=== PATIENT | female | born 1990 | race Caucasian/White ===

== ENCOUNTER 2022-01-14 11:10 | Emergency (ER) | payer OTHER, SELFPAY ==
[2022-01-14 11:30] VITALS: BP 118/92; PULSE 89; RESP 16; TEMP 36.4; O2SAT 99; BMI 45.6
[2022-01-14 11:59] LABS: Strep Scrn Group A (Rapid) Negative (Negative)
--- NOTE | 2022-01-14 12:00 | HMH.EDUTC ---
[facility] [place] Clinical Impression: URI (upper respiratory infection) Qualifiers: URI type: unspecified URI Qualified Code(s): J06.9 - Acute upper respiratory infection, unspecified Disposition: Home, Self-Care Condition on Discharge: Good Instructions: Sore Throat, Methylprednisolone, Azithromycin Additional Instructions: *Monitor Temp, Over the counter Motrin or Tylenol as directed/as needed Tylenol every 4 hours and Motrin every 6 hours (as long as your family doctor has told you that you can take it) for fever or pain. and straight to ER if unable to lower temp less than 101.0 after medication given *Warm salt water gargles may help to soothe the throat *Throat Lozenges *Warm fluids like tea with honey may help to soothe the throat *Sleep elevated *Humidifier/Vaporizer Your throat swab was sent for culture. Those results are typically sent to your primary care. Be sure to follow up in 2-3 days with your family doctor/primary care physician if no improvement so they can review those result and treat if necessary. If you don?t have a primary care doctor, I recommend you get one but in the mean time, you will have to return to a walk in clinic Follow up IMMEDIATELY for new or worsening symptoms or no Noticeable improvement over the next 48-72 hours. 911 for difficulty breathing or swallowing Prescriptions: methylPREDNISolone [Medrol 4mg tab] 4 mg PO DIRECTED #21 tab Transmission Status: Pending to [facility] #[id number] Azithromycin [Z-Kin 250mg Tab] 250 mg PO DIRECTED #6 tab Transmission Status: Pending to [facility] #[id number] Referrals: Yasmani Zamora [Primary Care Provider] - As needed Time of Disposition: 12:08 Medical Decision Making - Dong Inquiry Pt receiving controlled substance: No Dong was queried for this patient: No Vital Signs: 01/14/22 11:30 Temperature 97.5 F L Temperature Source Oral Pulse Rate [Right Brachial] 89 Respiratory Rate 16 Blood Pressure [Right Arm] 118/92 H Blood Pressure Mean [Right Arm] 100 Blood Pressure Source [Right Arm] Automatic Cuff Blood Pressure Position [Right Arm] Sitting 02 Sat by Pulse Oximetry 99 Oxygen Delivery Method Room Air - Lab Data Lab results reviewed: Yes: I reviewed the patient's lab results. Lab Results 01/14/22 11:30: Group A Strep Rapid Negative Orders (Tests/Meds): ORDERS Category Date Time Status Strep Screen Confirmation Stat Micro 01/14/22 11:30 Received [facility] – [place] HPI - General Stated complaint: cough, sore throat Time Seen by Provider: 01/14/22 12:00 Mode of Arrival: Ambulatory Source of Information: Patient Limitations: No Limitations Description of Symptoms (Recalled from Triage Doc. by RN): PATIENT C/O SORE THROAT, SWOLLEN TONSILS, AND COUGH HEENT Symptoms (Recalled from RN notes): Yes Resp Symptoms (Recalled from RN notes): Yes Skin Symptoms (Recalled from RN notes): No MS Symptoms (Recalled from RN notes): No Functional Status (Recalled from RN notes): WNL - History of Present Illness Provider Complaint: Patient states she has been having sore throat, sinus congestion and pressure States that she took 2 at home COVID test and they was negative States that she feels like she may have strep throat - Related Data Previous Rx's Medication Instructions Recorded Azithromycin [Z-Kin 250mg Tab] 250 mg PO DIRECTED #6 tab 01/14/22 methylPREDNISolone [Medrol 4mg 4 mg PO DIRECTED #21 tab 01/14/22 tab] Allergies Allergy/AdvReac Type Severity Reaction Status Date / Time No Known Allergies Allergy Verified 01/14/22 11:50 - Worker's Comp Is this a Worker's Comp case?: No [facility] History - Hepatitis A Screen Attestation statement:: This patient has been screened for Hepatitis A risk factors. I have reviewed the patient's past medical history: Yes - Social History Alcohol Intake: never Occupational Status: other ROS Obtained: Yes All systems reviewed & no addit
[2022-01-14 12:10] VITALS: BP 118/92; PULSE 89; RESP 16; TEMP 36.4; O2SAT 99
== END 2022-01-14 12:15 | disposition home or self-care (01) ==
PROVIDERS: Emergency Provider Nurse Practitioner; PCP Internal Medicine
DX: J06.9 Acute upper respiratory infection, unspecified (principal)
CPT/HCPCS: 87430; 99212; G0463

== ENCOUNTER 2022-02-13 19:34 | Emergency (ER) | payer OTHER, SELFPAY ==
[2022-02-13 19:45] VITALS: BP 137/87; PULSE 82; RESP 17; TEMP 36.4; O2SAT 98; BMI 44.9
--- NOTE | 2022-02-13 19:51 | HMH.EDUTC ---
[facility] – [place] Disposition Clinical Impression: Allergic reaction, Allergic conjunctivitis, right eye Disposition: Home, Self-Care Condition on Discharge: Good Instructions: DI for General Allergic Reactions Additional Instructions: Try to identify and avoid contact with the offending substance. Don't start the oral steroids until tomorrow. = Follow up with your regular doctor. GO TO THE ER FOR ANY WORSENING SYMPTOMS OR CONCERNS Prescriptions: diphenhydrAMINE HCL [Diphenhydramine HCl] 25 mg PO Q6HP PRN #30 cap PRN Reason: Itching Transmission Status: Pending to [facility] #[id number] methylPREDNISolone [Medrol] 4 mg PO DIRECTED 6 Days #21 packet Transmission Status: Pending to [facility] #[id number] Referrals: Yasmani Zamora [Primary Care Provider] - Time of Disposition: 20:06 Medical Decision Making - Medical Records Medical records reviewed: No: I reviewed the patient's medical records. - Dong Inquiry Pt receiving controlled substance: No Vital Signs: 02/13/22 19:45 02/13/22 19:59 Temperature 97.6 F 97.6 F Temperature Source Oral Pulse Rate 82 Pulse Rate [Left] 82 Respiratory Rate 17 17 Blood Pressure 137/87 Blood Pressure [Right Arm] 137/87 Blood Pressure Mean [Right Arm] 103 02 Sat by Pulse Oximetry 98 Orders (Tests/Meds): ED MEDICATIONS Discontinued Medications Generic Name Dose Route Start Last Admin Trade Name Freq PRN Reason Stop Dose Admin Methylprednisolone Sodium Succinate 125 mg 02/13/22 19:54 02/13/22 19:59 Methylprednisolone Sod Succ 125mg Vial IM 02/13/22 19:55 125 mg ONCE ONE Administration [facility] [place] HPI - General Stated complaint: reaction Time Seen by Provider: 02/13/22 19:51 Mode of Arrival: Ambulatory Source of Information: Patient Limitations: No Limitations Description of Symptoms (Recalled from Triage Doc. by RN): patient comes in for allergic reaction to a guinea pig. patient had this happen before when she held a guinea pig, this time patient was in same room and right eye began to become red swollen and have drainage. HEENT Symptoms (Recalled from RN notes): Yes Resp Symptoms (Recalled from RN notes): No Skin Symptoms (Recalled from RN notes): Yes MS Symptoms (Recalled from RN notes): No Functional Status (Recalled from RN notes): n/a - History of Present Illness Provider Complaint: She was taking pictures of her sister's jessica pig so they could try to sell it when she started having swelling of her right eye. She has had a similar reaction in the past while being in close proximetry to the guina pig. At this time she c/o right eye swelling and irritation, hives of her face and itching of her skin in many differnt places. - Related Data Previous Rx's Medication Instructions Recorded Azithromycin [Z-Kin 250mg Tab] 250 mg PO DIRECTED #6 tab 01/14/22 methylPREDNISolone [Medrol 4mg 4 mg PO DIRECTED #21 tab 01/14/22 tab] diphenhydrAMINE HCL 25 mg PO Q6HP PRN #30 cap 02/13/22 [Diphenhydramine HCl] methylPREDNISolone [Medrol] 4 mg PO DIRECTED 6 Days #21 02/13/22 packet Allergies Allergy/AdvReac Type Severity Reaction Status Date / Time No Known Allergies Allergy Verified 02/13/22 19:50 - Worker's Comp Is this a Worker's Comp case?: No [facility] History - Hepatitis A Screen Attestation statement:: This patient has been screened for Hepatitis A risk factors. I have reviewed the patient's past medical history: Yes - Social History Alcohol Intake: never Occupational Status: other ROS Obtained: Yes All systems reviewed & no additional complaints - Constitutional Constitutional: Reports as per HPI, Denies chills, Denies fever(s) - Eyes Eyes: Denies blind spots, Denies blurry vision, Denies change in vision, Denies diplopia, Reports eye discharge, Reports irritation, Reports itchy eyes Physical Exam - General General appearance: alert, in no apparent distress - Head Head ex
[2022-02-13 19:59] VITALS: BP 137/87; PULSE 82; RESP 17; TEMP 36.4
== END 2022-02-13 20:10 | disposition home or self-care (01) ==
PROVIDERS: Emergency Provider Nurse Practitioner Family; PCP Internal Medicine
DX: J30.81 Allergic rhinitis due to animal (cat) (dog) hair and dander (principal); H10.11 Acute atopic conjunctivitis, right eye
CPT/HCPCS: 96372; 99212; G0463

== ENCOUNTER 2023-07-05 09:53 | Emergency (ER) | payer OTHER, SELFPAY ==
[2023-07-05 10:40] VITALS: BP 140/68; PULSE 78; RESP 18; TEMP 37.1; O2SAT 100; BMI 48.2
[2023-07-05 11:00] LABS: UTC Strep Screen (Rapid) Negative (Negative)
--- NOTE | 2023-07-05 11:07 | EXP.UTC ---
Discharge Plan Disposition Patient Disposition: Home, Self-Care Condition: Good Prescriptions Prescriptions: New methylprednisolone [Medrol (Kin)] 4 mg tablets,dose pack See Rx Instructions .Route .COMPLEX 6 Days Qty: 21 0RF Rx Instructions: taper pack; amoxicillin-pot clavulanate 875-125 mg Tablet 1 tab PO Q12H Qty: 20 0RF guaifenesin [Mucinex] 600 mg tablet extended release 12hr 1,200 mg PO BID PRN (Reason: cough) Qty: 20 0RF benzonatate 100 mg capsule 100 mg PO TID PRN (Reason: cough) Qty: 30 0RF No Action terbinafine HCl 250 mg tablet 250 mg PO DAILY Patient Comments: TAKE 1 TABLET BY MOUTH DAILY Referrals Follow up/Referrals: Yasmani Zamora [Primary Care Provider] - See instructions Activity Restrictions/Add. Instructions Additional Instructions/Restrictions: Start antibiotic today. Be sure to complete entire prescription even if feeling better Monitor temp. Tylenol every 4 hours as needed and / or ibuprofen every 6 hours as needed ( As long as your primary care physician has told you that it ok to take both. For fever/aches/pains ER if no less than 101 despite Tylenol or Motrin Humidifier/vaporizer or hot steamy shower Mucinex during the day for your cough and cough suppressant only at night. Be sure to drink lots of water. Insurance may not cover a prescriptions for mucinex. Might be cheaper to get 400mg tablets and take 2 tablet in the morning, mid-day and evening with lots of water. *Tessalon Perles will not cause drowsiness but use at bedtime to help stop cough so that you may get some rest. *Start steroid today. Helps with inflammation therefore, cough and wheezing. Follow directions on the package. Reviewed side effects. Patient reports taking them before. Follow up IMMEDIATELY for new or worsening of symptoms OR no noticeable improvement over the next 48-72 hours. 911 immediately for any life threatening symptoms such as chest pain or difficulty breathin Clinical Impressions Clinical Impression: Sinusitis Qualifiers: Sinusitis location: unspecified location Chronicity: unspecified Qualified Code(s): J32.9 - Chronic sinusitis, unspecified Instructions Patient Instructions: DI for Sinusitis, Sinusitis Discharge ED Provider: Anna Bustamante [facility] General Stated complaint: cough congestion sore throat Mode of Arrival: Ambulatory Source of Information: Patient Limitations: No Limitations Time Seen by Provider: 07/05/23 11:07 Description of Symptoms (Recalled from Triage Doc. by RN): cough, congestion, and sore throat HEENT Symptoms (Recalled from RN notes): Yes Resp Symptoms (Recalled from RN notes): No Skin Symptoms (Recalled from RN notes): No MS Symptoms (Recalled from RN notes): No Functional Status (Recalled from RN notes): n/a History of Present Illness Provider Complaint: Patient states she started last week with sinus congestion and pressure, drainage in the back of her throat, cough and chest congestion States that today she noticed it was burning when she would cough and she was coughing up some thick mucous states that she was also having the drainage in the back of her throat so she came in to get checked Related Data Home Medications Medication Instructions Recorded Confirmed terbinafine HCl 250 mg tablet 250 mg PO DAILY 07/05/23 07/05/23 Previous Rx's Medication Instructions Recorded amoxicillin 875 mg-potassium 1 tab PO Q12H #20 tabs 07/05/23 clavulanate 125 mg tablet benzonatate 100 mg capsule 100 mg PO TID PRN cough #30 caps 07/05/23 guaifenesin 600 mg tablet, 1,200 mg PO BID PRN cough #20 tabs 07/05/23 extended release 12 hr (Mucinex) methylprednisolone 4 mg tablets in See Rx Instructions .Route 07/05/23 a dose pack (Medrol (Kin)) .COMPLEX 6 days #21 tabs Allergies Allergy/AdvReac Type Severity Reaction Status Date / Time No Known Allergies Allergy Verified
[2023-07-05 11:35] VITALS: BP 140/68; PULSE 78; RESP 18; TEMP 37.1; O2SAT 100
== END 2023-07-05 11:35 | disposition home or self-care (01) ==
PROVIDERS: Emergency Provider Nurse Practitioner; PCP Internal Medicine
DX: J01.90 Acute sinusitis, unspecified (principal); R05.9 Cough, unspecified; R07.0 Pain in throat; R09.81 Nasal congestion; R09.82 Postnasal drip
CPT/HCPCS: 87880; 99212; 99214; G0463